=== PATIENT | female | born 1970 | race Caucasian/White ===

== ENCOUNTER → 2021-11-28 | Outpatient (CLI) | payer OTHER ==
[~2021-11-28] MED LIST: CONTRAST GIVEN. MC PRN; IOHEXOL 240 MG/ML 50ML VIAL. PO ONE; IOHEXOL 300 MG/ML 100ML VIAL. IV ONE
--- NOTE | 2021-11-28 18:22 | RAD ---
Exam: CT abdomen/pelvis with intravenous contrast Indication: Abdominal pain Comparison: None Technique: Helical CT imaging performed of the abdomen and pelvis after the intravenous administratio n of 75 mL Omnipaque 300. contrast. Sagittal and coronal reformats were obtained. One or more of the following individualized dose reduction techniques were utilized for this examinat ion: 1. Automated exposure control 2. Adjustment of the mA and/or kV according to patient size 3. Use of iterative reconstruction technique. Findings: Lower chest: There are calcified granulomas in the lingula. Heart is normal in size. Liver: Liver is normal in size. No focal lesions. Gallbladder/Biliary Tree: Normal. Pancreas: Normal. Spleen: Normal. Adrenal Glands: Normal. Kidneys/Ureters/Bladder: Kidneys are normal in size and enhancement. No hydronephrosis. Ureters and b ladder are normal. Reproductive Organs: Uterus is retroverted. No adnexal mass. Stomach, small bowel, and colon: Stomach, small bowel and colon are normal. Vasculature: The abdominal aorta is normal in caliber. Lymph Nodes: No lymphadenopathy. Peritoneum and retroperitoneum: No free fluid or free air. Bones: No acute osseous abnormalities. Miscellaneous: None IMPRESSION: No acute abnormality. Electronically signed by: Petra Menjivar MD (11/28/2021 6:20 PM) [id number]
== END ==
LOC: CT 16:15
PROVIDERS: ATTEND Physician Assistant Medical
DX: J84.10 Pulmonary fibrosis, unspecified (principal); N85.4 Malposition of uterus
CPT/HCPCS: 74177; Q9966; Q9967